=== PATIENT | male | born 1995 | race Two or more races ===

== ENCOUNTER 2024-10-30 15:28 | Emergency (ER) | payer MEDICAID, SELFPAY ==
[2024-10-30 15:36] VITALS: BP 137/79; PULSE 78; TEMP 36.5; O2SAT 100; BMI 37.6
--- NOTE | 2024-10-30 16:19 | ED_ITS ---
HPI - Ear Problem General Chief complaint: Ear Stated complaint: PAIN IN LEFT EAR, CAN'T HEAR Time Seen by Provider: 10/30/24 15:33 Source: patient Mode of arrival: walk-in Limitations: no limitations History of Present Illness HPI Narrative: 28-year-old male presents here with chief complaint of left ear irritation. Patient states he has muffled hearing in this ear. He does wear ear protection at work. Bilateral cerumen impaction is noted on initial exam. He denies a known history of cerumen impaction. He states his ear feels like it is popping on the left. There is no swelling or erythema noted Related Data Previous Rx's ?Medication ?Instructions ?Recorded carbamide peroxide 6.5 % ear drops 5 drp otic (ear) DA CLARICE PRN wax 10/30/24 (Debrox) bulidup 4 days #15 mL Allergies Allergy/AdvReac Type Severity Reaction Status Date / Time No Known Drug Allergies Allergy Verified 10/30/24 15:35 Review of Systems ROS Status of ROS 10 or more systems reviewed and unremark able except as noted in history and below PFSH PFSH Social History Little interest or pleasure in doing things: not at all Feeling down, depressed, or hopeless: not at all Exam Narrative Exam Narrative: All Systems are negative except as noted/marked.All systems reviewed and otherwise negative Nurses note and vital signs reviewed and patient is not hypoxic. General: The patient appears well and in no apparent distress. Patient is resting comfortably on cart. Skin: Warm, dry, no pallor noted. There is no rash noted. Head: Normocephalic, atraumatic Eye: Normal conjunctiva, no drainage, EOMI. PERRL Ears, Nose, Mouth, and Throat: oral mucosa is moist. Nares patent. Mouth without vesicles. Bilateral cerumen impaction. Cardiovascular: Regular Rate and Rhythm Respiratory: Patient is in no distress, no accessory muscle use, lungs are clear to auscultation, no wheezing, rales or rhonchi Musculoskeletal: The patient has no evidence of calf tenderness, no pitting edema, symmetrical pulses noted bilaterally Neurological: A&O x4, normal speech Psychiatric: Cooperative Constitutional Vital Signs, click to edit/add: Last Vital Signs Temp 97.7 F 10/30/24 15:36 Pulse 78 10/30/24 15:36 Resp 16 10/30/24 15:36 BP 137/79 10/30/24 15:36 Pulse Ox 100 10/30/24 15:36 Course Vital Signs Vital signs: Vital Signs Temperature 97.7 F 10/30/24 15:36 Pulse Rate 78 10/30/24 15:36 Respiratory Rate 16 10/30/24 15:36 Blood Pressure 137/79 10/30/24 15:36 Pulse Oximetry 100 10/30/24 15:36 Temperature 97.7 F 10/30/24 15:36 Pulse Rate 78 10/30/24 15:36 Respiratory Rate 16 10/30/24 15:36 Blood Pressure 137/79 10/30/24 15:36 Pulse Oximetry 100 10/30/24 15:36 Medical Decision Making MDM Narrative Medical decision making narrative: 28-year-old male presents here with chief complaint of left ear irritation. Patient states he has muffled hearing in this ear. He does wear ear protection at work. Bilateral cerumen impaction is noted on initial exam. He denies a known history of cerumen impaction. He states his ear feels like it is popping on the left. There is no swelling or erythema noted Plan noted bilateral cerumen impaction. Both ears were irrigated with hydroperoxide and saline. Moderate amount of cerumen was removed out of both ears. Patient canal here. He did have a small amount of dizziness was medicated with Zofran and Antivert. Feels much better at this time we discharged home prescription of Debrox and follow-up with primary care physician Differential Diagnosis Differential Diagnosis: cerumen impaction Medical Records Medical records reviewed: Yes I reviewed the patient's medical records Lab Data Lab results reviewed: Yes I reviewed the patient's lab results Discharge Plan Discharge Chief Complaint: Ear Clinical Impression: Bilateral impacted cerumen Patient Disposition: Home, Self-Care Time of Disposition Decision: 16:48 Condition: Good Prescriptions / Home Meds: New Debrox 6.5 % drops 5 drp otic (ear) DAILY PRN (Reason: wax bulidup) 4 Days Qty: 15 0RF Print Language: Iranian Instructions: Carbamide Peroxide (Into the ear) Referrals: Physician,Non-Staff, MD [Primary Care Provider] - 1 week
[2024-10-30] MEDS: ONDANSETRON 4 MG RAPDIS TABLET SL (16:29)
[2024-10-30] MEDS: MECLIZINE HCL 12.5 MG TABLET 25 MG PO (16:29)
== END 2024-10-30 16:58 | disposition home or self-care (01) ==
PROVIDERS: Emergency Provider Emergency Medicine
DX: H61.23 Impacted cerumen, bilateral (principal)
CPT/HCPCS: 69209; 99283; Q0162